=== PATIENT | male | born 1990 | race Caucasian/White ===

== ENCOUNTER 2016-11-09 18:50 | Emergency (ER) | payer SELFPAY ==
[~2016-11-09] VITALS: Ht 175.3 cm; Wt 117.3 kg
[~2016-11-09 18:50] MED LIST: AMOXICILLIN500 M1 PO; MOTRIN800 MG PO; NORCO 5/3251 TABLET PO
[2016-11-09 19:01] VITALS: BP 156/101
== END 2016-11-09 21:00 | disposition left against medical advice (07) ==
LOC: EME 18:50
DX: S05.92XA Unspecified injury of left eye and orbit, initial encounter (principal); Z53.21 Procedure and treatment not carried out due to patient leaving prior to being seen by health care provider